=== PATIENT | female | born 1985 | race Two or more races ===

== ENCOUNTER 2023-12-15 16:54 | Emergency (ER) | payer OTHER ==
[~2023-12-15] VITALS: Ht 160 cm; Wt 68.9 kg
[2023-12-15] MEDS ORDERED: KETOROLAC TROMETHAMINE 30 MG VIAL IM STA (17:19)
[2023-12-15] MEDS ORDERED: ORPHENADRINE CITRATE 30 MG/ML AMPUL IM STA (17:20)
== END 2023-12-15 17:32 | disposition home or self-care (01) ==
LOC: ER 16:55
DX: M54.9 Dorsalgia, unspecified (principal)